=== PATIENT | male | born 1970 | race Caucasian/White ===

== ENCOUNTER 2021-05-04 22:36 | Emergency (ER) | payer OTHER ==
[~2021-05-04] VITALS: Ht 177.8 cm; Wt 88.5 kg
--- NOTE | 2021-05-04 22:55 | NUR ---
Dr. Babb at bedside for MSE.
[2021-05-04] MEDS ORDERED: ONDANSETRON ODT 4 MG TAB.RAPDIS SL ONE (23:00)
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
[2021-05-04] MEDS ORDERED: ONDA4TAB5 PO (23:31)
[2021-05-05] MEDS ORDERED: ONDANSETRON ODT 4 MG TAB.RAPDIS ONE (00:04)
[2021-05-05 01:50] VITALS: BP 119/75
== END 2021-05-05 | disposition home or self-care (01) ==
LOC: ER 22:38
DX: S00.03XA Contusion of scalp, initial encounter (principal); R11.2 Nausea with vomiting, unspecified; W22.8XXA Striking against or struck by other objects, initial encounter; Y92.89 Other specified places as the place of occurrence of the external cause; Y99.0 Civilian activity done for income or pay; F17.210 Nicotine dependence, cigarettes, uncomplicated
CPT/HCPCS: 70450; A4663; Q0162